=== PATIENT | male | born 1995 ===

== ENCOUNTER 2025-10-03 05:05 | Emergency (ER) | payer SELFPAY ==
[~2025-10-03] VITALS: Ht 172.7 cm; Wt 72.7 kg
[2025-10-03 05:14] VITALS: BP 132/86; PULSE 112; RESP 18; TEMP 98.3; O2SAT 97
== END 2025-10-03 06:18 | disposition left against medical advice (07) ==
LOC: ER 05:05 → EDBD 05:05 → ER 06:18
DX: R45.851 Suicidal ideations (principal); Z53.21 Procedure and treatment not carried out due to patient leaving prior to being seen by health care provider